=== PATIENT | female | born 1960 | race Caucasian/White ===

== ENCOUNTER 2016-10-24 16:51 | Emergency (ER) | payer BC ==
[~2016-10-24] VITALS: Ht 165.1 cm; Wt 90.2 kg
[~2016-10-24 16:51] MED LIST: DIOVAN80 MG PO; FLEXERIL10 MG PO; FLOVENT DISKUS1 DIS2 NS; HYDROCHLOROTH12.5 M3 PO; KETOROLAC TROME10 MG PO; LIPITOR10 MG PO; PERCOCET 5/31 TABLET PO; SINGULAIR10 MG PO; SONATA10 MG PO; ZANTAC150 MG PO
[2016-10-24 18:42] LABS: HEMATOCRIT 35.6 % (36.0-46.0); MCH 24.8 PG (29.0-34.0); MCHC 30.1 G/DL (30.0-36.0); MCV 82.4 FL (83-99); MEAN PLAT.VOLUME 9.6 uM^3 (9.5-12.4); PLATELET COUNT 377 K/uL (156-360); RBC DIS.WIDTH-CV 16.4 % (11.8-14.6); RBC DIS.WIDTH-SD 48.7 % (39-53); RED BLOOD COUNT 4.32 M/uL (3.80-5.20)
[2016-10-24 18:51] LABS: INTER. NORMALIZED RATIO 1.1; PROTHROMBIN TIME 10.7 (9.2-11.2)
[2016-10-24 18:53] LABS: CHLORIDE 105 mEq/L (99-109); POTASSIUM 4.3 mEq/L (3.7-5.4); SODIUM 140 mEq/L (136-147)
[2016-10-24 18:55] LABS: GLUCOSE 107 mg/dL (70-99)
[2016-10-24 18:56] LABS: ANION GAP 13 MEQ/L (2-14)
[2016-10-24 18:57] LABS: TOTAL BILIRUBIN 0.5 mg/dL (0.0-1.0)
[2016-10-24 18:58] LABS: ALKALINE PHOSPHATASE 176 IU/L (3-129)
[2016-10-24 18:59] LABS: GFR ESTIMATE (CALCULATED) 29 mL/min/
[2016-10-24 19:00] LABS: UREA NITROGEN (BUN) 24 mg/dL (9-23)
[2016-10-24] MEDS ORDERED: XARELTO15 MG PO (19:42)
[2016-10-24 19:51] VITALS: BP 123/69
== END 2016-10-24 19:52 | disposition home or self-care (01) ==
LOC: EME 16:51
PROVIDERS: Nurse Practitioner Family
DX: I82.402 Acute embolism and thrombosis of unspecified deep veins of left lower extremity (principal); E78.5 Hyperlipidemia, unspecified; I10 Essential (primary) hypertension; F17.200 Nicotine dependence, unspecified, uncomplicated
CPT/HCPCS: 80053; 85027; 85610; 85730; 93005; 99281; 99283